=== PATIENT | female | born 1980 | race Caucasian/White ===

== ENCOUNTER 2019-04-19 02:13 | Emergency (ER) | payer SELFPAY ==
[~2019-04-19] VITALS: Ht 157.5 cm; Wt 51.1 kg
--- NOTE | 2019-04-19 02:21 | PHYS DOC ---
Past History Past Medical History: Alcoholism, Bipolar, Seizure, Other Past Medical History Hx of Polysubstance Abuse Past Surgical History: Other Smoking: Cigarettes Alcohol Use: Heavy Drug Use: Cocaine, Marijuana Adult General Chief Complaint Chief Complaint: ".. I am just fucking drunk.. and have anger issues... I drank too fucking much... My rosalva boy friend brought me.. fucking.. I get seizures.. and I... treat it with marijuana.. but I rosalva moved her few weeks ago from [facility]... fucking weed is not legal here...I do like the people... " HPI HPI Patient is a 39 year old female who presents with above hx and complaints alcohol Intoxication. Patient was stopped off my boyfriend because he felt she was too intoxicated. 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 Patient admits to previous history of a seizure disorder not responsive to any anti-convulsants but is responsive to marijuana treatment. Patient recently has moved into the area from [place]. No history of trauma. No history immunosuppression. Patient states she has been drinking constantly tonight celebrating . Review of Systems Review of Systems Constitutional: Denies fever or chills [] Eyes: Denies change in visual acuity, redness, or eye pain [] HENT: Denies nasal congestion or sore throat [] Respiratory: Denies cough or shortness of breath [] Cardiovascular: No additional information not addressed in HPI [] GI: Denies abdominal pain, , vomiting, bloody stools or diarrhea [] Complaints of nausea. : Denies dysuria or hematuria [] Musculoskeletal: Denies back pain or joint pain [] Integument: Denies rash or skin lesions [] Neurologic: Denies headache, focal weakness or sensory changes [] Endocrine: Denies polyuria or polydipsia [] All other systems were reviewed and found to be within normal limits, except as documented in this note. Family History Family History Noncontributory Current Medications Current Medications See nursing for home meds Allergies Allergies Carbamazepine and Depakote Physical Exam Physical Exam Constitutional: no acute distress, intoxicated in appearance. [] HENT: Normocephalic, atraumatic, bilateral external ears normal, oropharynx moist, no oral exudates, nose normal. Poor dentition Eyes: PERRLA, EOMI, conjunctiva injected, no discharge. [] Neck: Normal range of motion, no tenderness, supple, no stridor. [] Cardiovascular: Tachycardia Heart rate regular rhythm, no murmur [] Lungs & Thorax: Bilateral breath sounds equal apex with scattered wheezes auscultation [] Abdomen: Bowel sounds normal, soft, no tenderness, no masses, no pulsatile masses. [] Skin: Warm, dry, no erythema, no rash. [] Back: No tenderness, no CVA tenderness. [] Extremities: No tenderness, no cyanosis, no clubbing, ROM intact, no edema. [] Neurologic: Alert and oriented X 3, moves extremities on request. Has distal sensory., no focal deficits noted. Discoordinated. Wide gait. Right-hand dominant. Psychologic: Affect intoxicated, judgement poor insight to alcohol abuse mood vacillates from tearful to laughing EKG EKG [] Radiology/Procedures Radiology/Procedures [] Course & Med Decision Making Course & Med Decision Making Pertinent Labs and Imaging studies reviewed. (See chart for details) Patient avoid further alcohol use. Patient take multivitamin. Patient follow-up counseling center. Patient follow-up primary care. Must follow up. Impression 1. Alcohol intoxication and alcohol 241 2. Tobacco use 3. History of polysubstance abuse 4. Elevated Lymphocytes 50 [] Dragon Disclaimer Dragon Disclaimer This electronic medical record was generated, in whole or in part, using a voice recognition dictation system. Departure Departure: Disposition: 01 HOME/RESIDENCE PRIOR TO ADM Condition: STABLE Dragon Disclaimer This chart was dictated in whole or in part using Voice Recognition software in a busy, high-work load, and often noisy Emergency Department environment. It may contain unintended and wholly unrecognized errors or omissions. Dragon Disclaimer This chart was dictated in whole or in part using Voice Recognition software in a busy, high-work load, and often noisy Emergency Department environment. It may contain unintended and wholly unrecognized errors or omissions. BARBIE AGUILAR MD Apr 19, 2019 02:21
[2019-04-19] MEDS ORDERED: IV RINGERS SOLUTION,LACTATED 1,000 ML IV SCH (02:22)
[2019-04-19 02:59] LABS: BASO # 0.1 x10^3/uL (0.0-0.2); BASO % 1 % (0-3); EOS # 0.1 x10^3/uL (0.0-0.7); EOS % 1 % (0-3); HEMATOCRIT 40.4 % (36.0-47.0); HEMOGLOBIN 14.1 g/dL (12.0-15.5); LYMPH % 50 % (24-48); MEAN CORPUSCULAR HEMOGLOBIN 28 pg (25-35); MEAN CORPUSCULAR HGB CONC 35 g/dL (31-37); MEAN CORPUSCULAR VOLUME 81 fL (79-100); MONO # 0.6 x10^3/uL (0.0-1.1); MONO % 6 % (0-9); NEUT # 4.2 x10^3uL (1.8-7.7); NEUT % 42 % (31-73); PLATELET COUNT 271 x10^3/uL (140-400); RED BLOOD COUNT 4.97 x10^6/uL (3.50-5.40); RED CELL DISTRIBUTION WIDTH 15.5 % (11.5-14.5); WHITE BLOOD COUNT 9.9 x10^3/uL (4.0-11.0)
[2019-04-19] MEDS ORDERED: MVI, ADULT NO.4 WITH VIT K 10 ML, FOLIC ACID SYRINGE for ER 1 MG, THIAMINE INJ 100 MG i... IV ONE ×4 (03:00)
[2019-04-19 03:27] LABS: CALCIUM 8.4 mg/dL (8.5-10.1); CREATININE 0.7 mg/dL (0.6-1.0); GFR 93.6; POTASSIUM 3.7 mmol/L (3.5-5.1)
[2019-04-19 03:33] LABS: DIRECT BILIRUBIN 0.1 mg/dL (0.0-0.2); MAGNESIUM 2.2 mg/dL (1.8-2.4); TOTAL BILIRUBIN 0.2 mg/dL (0.2-1.0); TOTAL PROTEIN 8.1 g/dL (6.4-8.2)
[2019-04-19 03:58] LABS: BACTERIA,URINE 0 /HPF (0-FEW); BILIRUBIN,URINE NEG (NEG); CLARITY,URINE CLEAR; COLOR,URINE YELLOW; GLUCOSE,URINE NEG (NEG); NITRITE,URINE NEG (NEG); RBC,URINE 0 /HPF (0-2); SQUAMOUS EPITHELIAL CELL,UR FEW /LPF; UROBILINOGEN,URINE 0.2 mg/dL (0.2 mg/dL); WBC,URINE OCC /HPF (0-4)
[2019-04-19 04:06] LABS: BARBITURATES NEG (NEG); BENZODIAZEPINES NEG (NEG); CANNABINOIDS NEG (NEG); COCAINE NEG (NEG); METHADONE NEG (NEG); OPIATES NEG (NEG); PHENCYCLIDINE NEG (NEG)
[2019-04-19 04:09] LABS: AMPHETAMINE/METHAMPHETAMINE NEG (NEG)
[2019-04-19] MEDS ORDERED: THIAMINE 200 MG/2 ML VIAL. IV ONE (04:25)
[2019-04-19] MEDS ORDERED: MVI, ADULT NO.4 WITH VIT K 10 ML VIAL IV ONE (04:26)
[2019-04-19 05:42] VITALS: BP 95/66
== END 2019-04-19 06:15 | disposition home or self-care (01) ==
LOC: ER 02:13
DX: F10.229 Alcohol dependence with intoxication, unspecified (principal); F17.210 Nicotine dependence, cigarettes, uncomplicated; D72.820 Lymphocytosis (symptomatic); F19.10 Other psychoactive substance abuse, uncomplicated; F14.10 Cocaine abuse, uncomplicated; F12.10 Cannabis abuse, uncomplicated; F31.9 Bipolar disorder, unspecified; Y90.8 Blood alcohol level of 240 mg/100 ml or more
CPT/HCPCS: 36415; 80048; 80076; 80307; 81001; 81025; 83690; 83735; 85025; 96365; 99284; G0480; J7120